=== PATIENT | male | born 2000 | race Caucasian/White ===

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

== ENCOUNTER 2020-02-18 19:11 | Emergency (ER) | payer SELFPAY ==
[~2020-02-18] VITALS: Ht 177.8 cm; Wt 77.3 kg
[~2020-02-18 19:11] MED LIST: CARAFATE 1GM1 G PO; ZOFRAN ODT4 MG PO
[2020-02-18 19:16] VITALS: BP 134/86; TEMP 97.9
[2020-02-18] MEDS ORDERED: CEPHALEXIN500 M1 PO (19:57)
[2020-02-18 20:27] VITALS: PULSE 62
== END 2020-02-18 20:27 | disposition home or self-care (01) ==
LOC: COL.ER 19:11
DX: S61.211A Laceration without foreign body of left index finger without damage to nail, initial encounter (principal); W26.0XXA Contact with knife, initial encounter; Y93.G3 Activity, cooking and baking; Y92.009 Unspecified place in unspecified non-institutional (private) residence as the place of occurrence of the external cause